=== PATIENT | male | born 2000 | race Caucasian/White ===

== ENCOUNTER → 2021-06-07 11:57 | Outpatient (CLI) | payer MEDICAID, SELFPAY ==
[2021-06-07 12:33] LABS: Basophils # 0.1 K/mm3 (0-0.2); Basophils % 0.8 % (0.1-2.0); Eosinophils # 0.1 K/mm3 (0.0-0.4); Eosinophils % 0.7 % (0.1-12.0); Hematocrit 46.1 % (42.0-52.0); Lymphocytes # 1.8 K/mm3 (0.7-4.5); Lymphocytes % 30.3 % (10-50); Mean Corpuscular HGB Conc 34.7 g/dL (31.8-35.4); Mean Corpuscular Hemoglobin 31.3 pg (27.0-31.2); Mean Corpuscular Volume 90.3 fl (80-94); Mean Platelet Volume 8.7 fl (7.4-10.4); Monocytes # 0.3 K/mm3 (0.1-1.0); Monocytes % 5.6 % (1.7-9.3); Neutrophils # 3.8 K/mm3 (1.8-7.8); Neutrophils % 62.5 % (37.0-80.0); Platelet Count 163 K/mm3 (142-424); Red Blood Count 5.11 M/mm3 (4.60-6.20); Red Cell Distribution Width 13.4 % (11.5-17.5); White Blood Count 6.1 K/mm3 (4.8-10.8)
[2021-06-07 13:29] LABS: Chloride 104 mmol/L (98-107); Potassium 4.4 mmoL/L (3.5-5.1); Sodium 142 mmol/L (136-145)
[2021-06-07 13:32] LABS: Blood Urea Nitrogen 13 mg/dl (9-20); Estimated Glomerular Filt Rate 170 ml/min (>60); GFR (African American) 206 ML/MIN (>60)
[2021-06-07 13:33] LABS: Anion Gap 13.4 mEq/L (5-15); Calcium 9.5 mg/dl (8.4-10.2); Carbon Dioxide 29 mmol/L (22.0-30.0); Glucose 65 mg/dl (74-100)
== END ==
PROVIDERS: Visit Provider Surgery
DX: Z01.812 Encounter for preprocedural laboratory examination (principal); Z11.52 Encounter for screening for COVID-19; L05.91 Pilonidal cyst without abscess
CPT/HCPCS: 36415; 80048; 85025; C9803; U0003; U0005

== ENCOUNTER 2021-06-09 08:14 | Day surgery (SDC) | payer MEDICAID, SELFPAY ==
[2021-06-07 09:48] VITALS: BMI 18.5
[2021-06-09] VITALS (10 sets, daily range): BP systolic 95–113; BP diastolic 48–75; PULSE 52–79; RESP 14–18; TEMP 36.5–37; O2SAT 97–100
--- NOTE | 2021-06-09 08:54 | HMH.ANESCL ---
[facility] Anesthesia Checklist - Patient Identification Patient Identification: Arm Band - Structural Data Admitted From: Home Planned Operative Procedure/s: Excision of pilonidal cyst Consent for Planned Operative Procedure(s) Verified: Yes - NPO Status Verified Time NPO: 00:00 - Additional verifications Anesthesia Reactions: No Hx Blood Transfusions: No Blood Transfusion Reaction: No - Airway Assessment C-Spine Mobility Assessed: Yes TMJ Mobility Assessed: Yes Dentition: Good Dentition - Neurological Assessment Level of Consciousness: Awake Hx Seizures: No Numbness or tingling in extremities: No - Anesthesia Plan Anesthesia Risk discussed: Yes Anesthesia Plan: Verified ASA Class: I Anesthesia Type: General [facility] History I have reviewed the patient's past medical history: Yes Medical History: Denies:: Cancer, Diabetes Mellitus Type 1, Diabetes Mellitus Type 2, Internal Pacemaker, MRSA, Seizures *Have you ever received a pneumonia vaccine?: No *Have you received a flu vaccine this season?: No Other Medical History: Denies: Blood Transfusion Reaction Anesthesia experience/problems:: None Other Surgeries: Yes: No Previous Surgery. No: Pacemaker Amputation: No Fractures: No - *Social History Last grade of school completed: High school graduate Smoking Status: Current every day smoker Tobacco Type: cigarettes # Packs/Day (cigarettes): 1 Alcohol Intake: never Substance Use Type: denies use *Occupational Status:: employed Housing: house *Travel in the last 8 weeks: None Family Hx:: No significant family history
--- NOTE | 2021-06-09 09:38 | P.OP_ITS ---
Date of procedure: 06/09/21 Pre-op Diagnosis:: Pilonidal cyst Post-op Diagnosis:: Same Procedure performed:: Pilonidal cyst excision Surgeon:: Yann Lagunas MD Way Inspector(s):: [place] OIL RAG WASHER:: Vikas Messer Anesthesia: LMA Estimated blood loss (mL): 5 Operative findings:: Pilonidal punctum with underlying cystic tissue excised Operative note:: After informed consent was obtained the patient was taken to the operating room placed in supine position. General anesthesia with laryngeal mask airway was achieved. He was transferred to the left lateral decubitus position. The buttock cleft and surrounding region were prepped and draped in a sterile fashion. After infiltration local anesthetic a 5 mm punch biopsy was utilized to transect/resect the pilonidal punctum. The underlying cystic tissue was carefully elevated and excised with electrocautery. The punctum and surrounding cystic tissue were passed off for pathologic evaluation. The wound was packed with moistened gauze and dressings were applied. The patient was transferred to recovery in stable condition after removal of his laryngeal mask airway. Condition: stable Disposition: PACU Specimens:: Pilonidal cyst Complications:: No immediate
--- NOTE | 2021-06-09 09:43 | P.PN_ITS ---
[facility] Anesthesia Record Part I Intake, IV Amount: 500 Estimated blood loss (mL): 5 Urine output (mL): 0 Blood Pressure: 96/58 SaO2: 97 Pulse Rate: 57 Respiratory Rate: 16 Temperature: 97.7 F Patient is:: Drowsy, Stable Stable to PACU at:: 09:40
--- NOTE | 2021-06-09 10:13 | SUR.PHASEI ---
[id number]- detailed report called to haider Kline in postop.
--- NOTE | 2021-06-09 14:52 | HMH.ANESII ---
[facility] Anesthesia Record Part II Discharge Time: 10:10 Destination: Surgical Day Care (OP Surgery) PACU nurse assessment reviewed?: Yes Patient Condition:: Good Anesthesia Complications:: None Swallowing reflex intact?: Yes Cyanosis?: No Blood Pressure: 101/72 Pulse Rate: 79 Temperature: 98.2 F Mental Status: Alert & Oriented Pain level:: 0 Nausea and/or vomitting:: None Intake, IV Amount: 0
== END 2021-06-09 10:41 | disposition home or self-care (01) ==
LOC: OR 08:15
PROVIDERS: PCP Family Medicine; Visit Provider Surgery
PROC: (CPT 11772; principal; 2021-06-09 09:15)
DX: L05.91 Pilonidal cyst without abscess (principal); Z72.0 Tobacco use
CPT/HCPCS: 11772; 96374; J2405